=== PATIENT | female | born 1935 | race Caucasian/White ===

== ENCOUNTER 2017-02-04 14:11 | Emergency (ER) | payer OTHER ==
[~2017-02-04] VITALS: Ht 160 cm; Wt 61.2 kg
[2017-02-04 14:21] VITALS: BP 155/76
--- NOTE | 2017-02-04 14:58 | NUR ---
PT AMBULATED TO BED 4 AT THIS TIME.
--- NOTE | 2017-02-04 15:00 | NUR ---
81F BIB FAMILY C/O LEFT SHOULDER PAIN X 1100 TODAY; PT STATES "CAUGHT SHOULDER ON SHELF IN CLOSET"; NO REDNESS, SWELLING, OR OBVIOUS DEFORMITIES NOTED TO SITE AT THIS TIME; LEFT PEDAL PULSE PALPABLE, LEFT CAP REFILL < 3 SECONDS, NO LOSS OF SENSATION TO LEFT ARM AT THIS TIME; PT STATES 0 PAIN AT THIS TIME W/ NO MOVEMENT, BUT STATES ACHING PAIN, NON-RADIATING, 9/10 W/ MOVEMENT TO ARM; PT A&OX4, BL LUNG SOUNDS CLEAR, RR EVEN/UNLABORED, SKIN IS WARM/DRY/INTACT AT THIS TIME; PT DENIES N/V/D AT THIS TIME; STEADY GAIT. PT RESTING IN BED W/ HOB ELEVATED AND IN LOWEST POSITION; POSITIONED FOR COMFORT; ER MD MADE AWARE OF STATUS. WILL CONTINUE TO MONITOR.
--- NOTE | 2017-02-04 15:40 | NUR ---
ER MD DR. HAIRSTON EVALUATING PT AT BEDSIDE.
[2017-02-04] MEDS ORDERED: KETOROLAC 60 MG/2 ML VIAL IM ONE (15:45)
[2017-02-04 16:10] VITALS: BP 122/77
--- NOTE | 2017-02-04 16:10 | NUR ---
Patient discharged with v/s stable. Written and verbal after care instructions given and explained. Patient alert, oriented and verbalized understanding of instructions. Ambulatory with steady gait. All questions addressed prior to discharge. ID band removed. Patient advised to follow up with PMD. Rx of NORCO 5MG-325MG TAB & MOTRIN 600MG given. Patient educated on indication of medication including possible reaction and side effects. Opportunity to ask questions provided and answered.
== END 2017-02-04 16:10 | disposition home or self-care (01) ==
LOC: MED 14:11
DX: S40.012A Contusion of left shoulder, initial encounter (principal); Z90.710 Acquired absence of both cervix and uterus; Z98.890 Other specified postprocedural states; W19.XXXA Unspecified fall, initial encounter; Y93.89 Activity, other specified; Y92.89 Other specified places as the place of occurrence of the external cause; Y99.8 Other external cause status
CPT/HCPCS: 73030; 96372; 99284; J1885